=== PATIENT | male | born 2000 | race Caucasian/White ===

== ENCOUNTER 2020-05-04 21:25 | Emergency (ER) | payer MEDICAID ==
[~2020-05-04] VITALS: Ht 180.3 cm; Wt 77.1 kg
[2020-05-04] MEDS ORDERED: BACITRACIN OINT 500 UNITS/GM PKT TP STA (21:35)
--- NOTE | 2020-05-04 21:35 | NUR ---
Dr. Sandoval examining patient.
[2020-05-04 21:42] VITALS: BP 142/76
--- NOTE | 2020-05-04 21:46 | NUR ---
ANIMAL BITE REPORT COMPLETED
--- NOTE | 2020-05-04 22:22 | NUR ---
19 YO MALE CO DOG BIT TO RIGHT HAND SINCE TODAY. ANIMAL BITE REPORT COMPLETE.
[2020-05-04 23:05] VITALS: BP 142/76
== END 2020-05-04 22:18 | disposition home or self-care (01) ==
LOC: MED 21:25
DX: S61.431A Puncture wound without foreign body of right hand, initial encounter (principal); W54.0XXA Bitten by dog, initial encounter; Y93.89 Activity, other specified; Y92.89 Other specified places as the place of occurrence of the external cause; Y99.8 Other external cause status
CPT/HCPCS: 90471; 90715; 99283